=== PATIENT | male | born 1950 | race Caucasian/White ===

== ENCOUNTER → 2017-08-20 | Outpatient (REF) | payer MEDICARE | LOC: M SFHCPLAZ 13:49 | PROVIDERS: ATTEND Physician Assistant | DX: E78.5 Hyperlipidemia, unspecified (principal); Z12.5 Encounter for screening for malignant neoplasm of prostate; R42 Dizziness and giddiness; Z53.8 Procedure and treatment not carried out for other reasons ==

== ENCOUNTER → 2017-08-30 | Outpatient (REF) | payer MEDICARE ==
[2017-08-30 14:50] LABS: ALBUMIN 3.7 GM/DL (3.2-5.2); ALBUMIN/GLOBULIN RATIO 1.19 (1.00-1.93); ALKALINE PHOSPHATASE 72 U/L (45-117); ALT/SGPT 20 U/L (12-78); ANION GAP 8 MEQ/L (8-16); AST/SGOT 17 U/L (15-37); BILIRUBIN,TOTAL 0.4 MG/DL (0.2-1.0); BLOOD UREA NITROGEN 15 MG/DL (7-18); CALCIUM LEVEL 8.8 MG/DL (8.8-10.2); CARBON DIOXIDE LEVEL 30 MEQ/L (21-32); CHLORIDE LEVEL 106 MEQ/L (98-107); CHOLESTEROL LEVEL 168 MG/DL (<200); CREATININE FOR GFR 0.66 MG/DL (0.70-1.30); GLOMERULAR FILTRATION RATE > 60.0 (>49); GLUCOSE, FASTING 75 MG/DL (80-110); SODIUM LEVEL 144 MEQ/L (136-145); TOTAL PROTEIN 6.8 GM/DL (6.4-8.2); TRIGLYCERIDES LEVEL 82 MG/DL (<150)
== END ==
LOC: M SFHCPLAZ 09:18
PROVIDERS: ATTEND Physician Assistant
DX: E78.5 Hyperlipidemia, unspecified (principal); Z12.5 Encounter for screening for malignant neoplasm of prostate; R42 Dizziness and giddiness
CPT/HCPCS: 36415; 80053; 80061; 84443; G0103

== ENCOUNTER → 2019-04-29 | Outpatient (REF) | payer MEDICARE ==
[2019-04-29 12:08] LABS: HEMOGLOBIN 11.3 g/dl (13.5-17.5); MEAN CORPUSCULAR HEMOGLOBIN 24.7 pg (27.0-33.0); MEAN CORPUSCULAR VOLUME 85.3 fl (80.0-96.0); PLATELET COUNT, AUTOMATED 362 10^3/uL (150-450); RED BLOOD COUNT 4.57 10^6/uL (4.30-6.10); WHITE BLOOD COUNT 9.4 10^3/uL (4.0-10.0)
[2019-04-29 13:52] LABS: ALBUMIN 3.7 GM/DL (3.2-5.2); ALT/SGPT 22 U/L (12-78); BILIRUBIN,TOTAL 0.2 MG/DL (0.2-1.0); BLOOD UREA NITROGEN 15 MG/DL (7-18); CALCIUM LEVEL 8.6 MG/DL (8.8-10.2); CARBON DIOXIDE LEVEL 25 MEQ/L (21-32); CHLORIDE LEVEL 107 MEQ/L (98-107); CHOLESTEROL LEVEL 184 MG/DL (<200); CHOLESTEROL RISK RATIO 3.345 (<5); CREATININE FOR GFR 0.67 MG/DL (0.70-1.30); FERRITIN 9 NG/ML (26-388); GLOMERULAR FILTRATION RATE > 60.0 (>42); GLUCOSE, FASTING 77 MG/DL (70-100); HDL CHOLESTEROL 55 MG/DL (>40); IRON (FE) 41 UG/DL (65-175); LDL CHOLESTEROL 110 MG/DL (<100); NON-HDL-C 129 MG/DL; PERCENT SATURATION 9.7 % (19.7-50.0); POTASSIUM SERUM 4.2 MEQ/L (3.5-5.1); SODIUM LEVEL 142 MEQ/L (136-145); TOTAL IRON BINDING CAPACITY 422 UG/DL (250-450); TOTAL PROTEIN 7.1 GM/DL (6.4-8.2); TRIGLYCERIDES LEVEL 95 MG/DL (<150)
== END ==
LOC: M SFHCPLAZ 08:45
PROVIDERS: ATTEND Nurse Practitioner Family
DX: E78.5 Hyperlipidemia, unspecified (principal); R06.09 Other forms of dyspnea; Z12.5 Encounter for screening for malignant neoplasm of prostate; Z23 Encounter for immunization
CPT/HCPCS: 36415; 80053; 80061; 82728; 83550; 84443; 85027; 90732; G0009; G0103; G0463

== ENCOUNTER → 2019-05-07 | Outpatient (CLI) | payer MEDICARE ==
[~2019-05-07] MED LIST: ISOVUE-370 76% 100ML VIAL (Q9967) As Ordered ONE
--- NOTE | 2019-05-07 16:29 | REP ---
CT of the chest for evaluation of lung nodules identified on PA and lateral plain film studies dated 04/29/2019. The study is performed with IV contrast. On the comparison plain film study there is a nodule inferiorly in the right lung. On the CT today this nodule is in the anterior segment right lower lobe on image 68. By CT is a calcified granuloma and measures five millimeters in diameter. On the comparison study there is a nodule inferiorly in the left lung. This nodule is identified in the posterior segment of the left lower lobe on image 82 and measures 3 mm in diameter by CT. It is too small for accurate Hounsfield density measurement. On the comparison plain film study there is another nodule inferiorly in the left lung. On the CT today the nodule is in the lateral segment of the left lower lobe on image 83 that is a calcified granuloma. This nodule measures 4 mm in diameter by CT. No other lung nodules are identified by CT. There are no infiltrates. There are no pleural effusions. There is no mediastinal or hilar lymph node enlargement. There are no mediastinal or hilar calcified granulomas. There is no axillary lymph node enlargement or calcified granuloma. The thoracic aorta is unremarkable. Cardiac size is normal. There is no pericardial effusion. Upper abdomen: The visualized hepatic parenchyma is unremarkable except for a small hepatic cyst anteriorly in the left lobe. The gallbladder, pancreas and spleen are unremarkable. There is no adrenal mass. The visualized renal upper poles are unremarkable except for a small simple cyst in the left renal upper pole. Impression: The three nodules identified on the plain film study are again identified by CT. Two of the three nodules are calcified granulomas. One of the two nodules in the left lung cannot be accurately assessed by CT density measurements because of its small size. This nodule measures 3 mm in diameter and is a category II lesion with the probability of malignancy less than 1%. There are no other lung nodules. There are no infiltrates, effusions or adenopathy. There is a a small cyst anteriorly in the left lobe of the liver. There is a small renal cortical simple cyst in the upper pole of the left kidney. Electronically Signed by Woo Hanson MD 05/07/2019 04:21 P
== END ==
LOC: M RAD 15:05
PROVIDERS: ATTEND Nurse Practitioner Family
DX: R91.8 Other nonspecific abnormal finding of lung field (principal); N28.1 Cyst of kidney, acquired; K76.89 Other specified diseases of liver
CPT/HCPCS: 71260; Q9967

== ENCOUNTER 2019-06-05 10:20 | Day surgery (SDC) | payer MEDICARE ==
[~2019-06-05] VITALS: Ht 162.6 cm; Wt 5.4 kg
[~2019-06-05 10:20] MED LIST changes: +ATOR1TAB21 PO; +FERR325T3 PO; -ISOVUE-370 76% 100ML VIAL (Q9967) As Ordered ONE; +LIDOCAINE 2% INJ 100 MG/5 ML SDV (FOR ANES.) As Ordered ONE; +PROPOFOL 200 MG/20 ML VIAL As Ordered ONE
[2019-06-05] MEDS: NS 1,000 ML IV ONE (10:20)
[2019-06-05] MEDS ORDERED: fentaNYL 100 MCG/2 ML INJECTION (J3010) As Ordered ONE (11:17)
[2019-06-05] MEDS ORDERED: PHENYLephrine HCL 500 MCG/5 ML (100MCG/ML) SYRINGE (J2370) As Ordered ONE (11:36)
--- NOTE | 2019-06-05 11:38 | ROOR ---
Patient Name: Jose Alfredo Hurley Procedure Date: 06/05/2019 11:23 AM Date of : 1950 Age: 69 Room: [facility] Gender: Male Note Status: Finalized Procedure: Upper GI endoscopy Indications: Iron deficiency anemia Providers: Qasim Manzano Jr, MD Referring MD: Paulina Elkins NP Requesting Provider: Medicines: Propofol per Anesthesia Complications: No immediate complications. Procedure: Pre-Anesthesia Assessment: - Prior to the procedure, a History and Physical was performed, and patient medications and allergies were reviewed. The patient is competent. The risks and benefits of the procedure and the sedation options and risks were discussed with the patient. All questions were answered and informed consent was obtained. Patient identification and proposed procedure were verified by the physician and the nurse in the pre-procedure area and in the procedure room. Mental Status Examination: alert and oriented. Airway Examination: normal oropharyngeal airway and neck mobility. Respiratory Examination: clear to auscultation. CV Examination: normal. ASA Grade Assessment: II - A patient with mild systemic disease. After reviewing the risks and benefits, the patient was deemed in satisfactory condition to undergo the procedure. The anesthesia plan was to use moderate sedation / analgesia (conscious sedation). Immediately prior to administration of medications, the patient was re-assessed for adequacy to receive sedatives. The heart rate, respiratory rate, oxygen saturations, blood pressure, adequacy of pulmonary ventilation, and response to care were monitored throughout the procedure. The physical status of the patient was re-assessed after the procedure. The Endoscope was introduced through the mouth, and advanced to the second part of duodenum. The upper GI endoscopy was accomplished without difficulty. The patient tolerated the procedure well. Findings: The upper third of the esophagus, middle third of the esophagus and lower third of the esophagus were normal. Non-severe esophagitis was found at the gastroesophageal junction. Biopsies were taken with a cold forceps for histology. The cardia, gastric fundus, gastric body, gastric antrum, prepyloric region of the stomach and pylorus were normal. The duodenal bulb, first portion of the duodenum and second portion of the duodenum were normal. Impression: - Normal upper third of esophagus, middle third of esophagus and lower third of esophagus. - Non-severe reflux esophagitis. Biopsied. - Normal cardia, gastric fundus, gastric body, antrum, prepyloric region of the stomach and pylorus. - Normal duodenal bulb, first portion of the duodenum and second portion of the duodenum. Recommendation: - Discharge patient to home (ambulatory). - Return to my office as previously scheduled. Qasim Manzano MD Qasim Manzano Jr, MD 06/05/2019 11:38:08 AM Electronically signed by Qasim Manzano Jr, MD Number of Addenda: 0 Note Initiated On: 06/05/2019 11:23 AM Estimated Blood Loss: Estimated blood loss: none.
--- NOTE | 2019-06-05 11:52 | ROOR ---
Patient Name: Jose Alfredo Hurley Procedure Date: 06/05/2019 11:24 AM Date of : 1950 Age: 69 Room: [facility] Gender: Male Note Status: Finalized Procedure: Colonoscopy Indications: Iron deficiency anemia Providers: Qasim Manzano Jr, MD Referring MD: Paulina Elkins NP Requesting Provider: Medicines: Propofol per Anesthesia Complications: No immediate complications. Procedure: Pre-Anesthesia Assessment: - Prior to the procedure, a History and Physical was performed, and patient medications and allergies were reviewed. The patient is competent. The risks and benefits of the procedure and the sedation options and risks were discussed with the patient. All questions were answered and informed consent was obtained. Patient identification and proposed procedure were verified by the physician and the nurse in the pre-procedure area and in the procedure room. Mental Status Examination: alert and oriented. Airway Examination: normal oropharyngeal airway and neck mobility. Respiratory Examination: clear to auscultation. CV Examination: normal. ASA Grade Assessment: II - A patient with mild systemic disease. After reviewing the risks and benefits, the patient was deemed in satisfactory condition to undergo the procedure. The anesthesia plan was to use moderate sedation / analgesia (conscious sedation). Immediately prior to administration of medications, the patient was re-assessed for adequacy to receive sedatives. The heart rate, respiratory rate, oxygen saturations, blood pressure, adequacy of pulmonary ventilation, and response to care were monitored throughout the procedure. The physical status of the patient was re-assessed after the procedure. The Colonoscope was introduced through the anus and advanced to the cecum, identified by appendiceal orifice and ileocecal valve. The colonoscopy was performed without difficulty. The patient tolerated the procedure well. The quality of the bowel preparation was adequate. Findings: The rectum, recto-sigmoid colon, sigmoid colon, descending colon, transverse colon, cecum and ileocecal valve appeared normal. A fungating, infiltrative and submucosal non-obstructing medium-sized mass was found in the ascending colon. The mass was non-circumferential. Oozing was present. Biopsies were taken with a cold forceps for histology. Area was tattooed with an injection of 1 mL of Spot (carbon black). Impression: - The rectum, recto-sigmoid colon, sigmoid colon, descending colon, transverse colon, cecum and ileocecal valve are normal. - Likely malignant tumor in the ascending colon. Biopsied. Tattooed. Recommendation: - Discharge patient to home (ambulatory). - Return to my office in 1 week. Qasim Manzano MD Qasim Manzano Jr, MD 06/05/2019 11:52:05 AM Electronically signed by Qasim Manzano Jr, MD Number of Addenda: 0 Note Initiated On: 06/05/2019 11:24 AM Estimated Blood Loss: Estimated blood loss: none.
[2019-06-05 12:30] VITALS: BP 117/83
[2019-06-05] MEDS ORDERED: LIDOCAINE 1% MDV 20ML VIAL As Ordered ONE (13:10)
[2019-06-05] MEDS ORDERED: EPINEPHrine 1MG/ML INJ 30ML MD-VIAL As Ordered ONE (13:11)
== END 2019-06-05 12:44 | disposition home or self-care (01) ==
LOC: M OPP 10:20
PROVIDERS: ATTEND Surgery
DX: D50.9 Iron deficiency anemia, unspecified (principal); D49.0 Neoplasm of unspecified behavior of digestive system; K21.0 Gastro-esophageal reflux disease with esophagitis; Z79.899 Other long term (current) drug therapy; Z87.891 Personal history of nicotine dependence
CPT/HCPCS: 43239; 45380; 45381; 88305; J2370; J3010

== ENCOUNTER 2019-06-24 08:46 | Inpatient (IN) | payer MEDICARE ==
--- NOTE | 2019-06-23 17:30 | HPE ---
DATE OF ADMISSION: 06/24/2019 CHIEF COMPLAINT: Colon cancer (ascending colon). BRIEF HISTORY OF PRESENT ILLNESS: The patient is a 69-year-old male who was referred to the surgical office for workup of anemia and specifically an iron deficiency anemia. Upon proceeding with a colonoscopy, a fungating infiltrative nonobstructing lesion was found in the ascending colon. This was mildly friable and is most likely the etiology for his anemia. The biopsy results were performed and indeed revealed a moderately-differentiated adenocarcinoma. The patient presents for further treatment of this. PAST MEDICAL HISTORY: Significant for a history of bilateral inguinal hernia repair, history of colonoscopy, esophagogastroduodenoscopy (EGD), history of hyperlipidemia. MEDICATIONS: Include atorvastatin and iron. PHYSICAL EXAMINATION: Reveals a 69-year-old male who looks stated age. HEENT is unremarkable. Neck supple without adenopathy. Lungs are clear to auscultation without crackles, wheezes or rhonchi. Heart is regular without murmur. Abdomen is soft, nondistended, nontender. No guarding. No rebound. No peritoneal signs are appreciated. No hepatosplenomegaly is appreciated. IMPRESSION AND PLAN: The patient has evidence of a right-sided colon cancer and the plan is for a laparoscopic right colectomy. The risks as well as the benefits have been discussed with the patient at length, those including but not limited to infection, bleeding, damage to surrounding structures including bowel, bladder, nerve vessels, kidney, ureter, duodenum, liver, and possible anastomotic complications, infections, leaks, etcetera. The patient understands that there is a chance that he may need an open operative intervention instead of laparoscopic but overall plan as of this time is to proceed with a laparoscopic right colectomy. The patient understands that he will receive a mechanical as well as antibiotic bowel preparation perioperatively and will be hospitalized after operative intervention.
[2019-06-24] VITALS (8 sets, daily range): BP systolic 110–130; BP diastolic 60–83
[~2019-06-24] VITALS: Ht 162.6 cm; Wt 58.7 kg
[~2019-06-24 08:46] MED LIST changes: +ERTAPENEM SODIUM 1 GM in NS MINI-BAG PLUS 50 ML IV ONE; +KETOROLAC 60 MG/2 ML VIAL (J1885) As Ordered ONE; +LIDOCAINE 1% MDV 20ML VIAL SQ PRN; -LIDOCAINE 2% INJ 100 MG/5 ML SDV (FOR ANES.) As Ordered ONE; +LR 1,000 ML IV ONE; -PROPOFOL 200 MG/20 ML VIAL As Ordered ONE
[2019-06-24] MEDS: ATORVASTATIN 20 MG TAB PO SCH (09:00)
[2019-06-24] MEDS ORDERED: LIDOCAINE 2% INJ 100 MG/5 ML SDV (FOR ANES.) As Ordered ONE (10:03)
[2019-06-24] MEDS ORDERED: propofoL 200 MG/20 ML VIAL As Ordered ONE (10:03)
[2019-06-24] MEDS ORDERED: dexameTHASONE 4 MG/ML 1ML VIAL (J1100) As Ordered ONE ×2 (10:03→10:04)
[2019-06-24] MEDS ORDERED: ROCURONIUM BROMIDE 50 MG/5 ML VIAL As Ordered ONE ×2 (10:03→13:21)
[2019-06-24] MEDS ORDERED: ONDANSETRON 4MG/2ML VIAL (J2405) As Ordered ONE (10:04)
[2019-06-24] MEDS ORDERED: MIDAZOLAM INJ 2 MG/2 ML VIAL (J2250) As Ordered ONE (10:08)
[2019-06-24] MEDS ORDERED: fentaNYL 100 MCG/2 ML INJECTION (J3010) As Ordered ONE ×2 (10:09→14:32)
[2019-06-24] MEDS ORDERED: SUCCINYLCHOLINE 100 MG/5 ML SYRINGE (J0330) As Ordered ONE (10:30)
[2019-06-24] MEDS ORDERED: BUPIVACAINE/EPIN 0.25% 30 ML VIAL As Ordered ONE (11:54)
[2019-06-24] MEDS ORDERED: PHENYLephrine HCL 500 MCG/5 ML (100MCG/ML) SYRINGE (J2370) As Ordered ONE (12:43)
[2019-06-24] MEDS ORDERED: BUPIVACAINE LIPOSOME/PF 1.3% 20ML VIAL (13.3MG/ML)(EXPAREL)(C9290 PER1MG) As Ordered ONE (13:49)
[2019-06-24] MEDS ORDERED: BUPIVACAINE HCL 0.25% 10 ML VIAL As Ordered ONE (13:49)
[2019-06-24] MEDS ORDERED: ACETAMINOPHEN 1000MG 100ML IV BTL (OFIRMEV) (J0131 PER 10MG) As Ordered ONE (13:58)
[2019-06-24] MEDS ORDERED: SUGAMMADEX SODIUM 500 MG/5 ML VIAL (BRIDION) As Ordered ONE (14:00)
[2019-06-24] MEDS ORDERED: ONDANSETRON 4MG/2ML VIAL (J2405) IV PRN ×2 (14:15→14:45)
[2019-06-24] MEDS ORDERED: IPRATROPIUM 0.5MG/ALBUTEROL 2.5MG INH SOL UD 3ML (DUONEB)(J7620) NEB PRN (14:15)
[2019-06-24] MEDS ORDERED: NORCO, ANEXSIA 5/325MG TABLET (HYDROcodone/ACETAMINOPHEN) PO PRN (14:15)
[2019-06-24] MEDS ORDERED: MORPHINE 4 MG/ML 1ML VIAL/SYRINGE (J2270) IV PRN ×2 (14:15)
[2019-06-24] MEDS: fentaNYL 100 MCG/2 ML INJECTION (J3010) IV PRN ×3 (14:34→14:55)
[2019-06-24] MEDS ORDERED: MEPERIDINE INJ 25 MG/ML VIAL (J2175) IV PRN (14:45)
[2019-06-24] MEDS ORDERED: oxyCODONE 5MG TAB PO PRN (14:45)
[2019-06-24] MEDS ORDERED: LR 1,000 ML IV SCH (14:45)
[2019-06-24] MEDS ORDERED: METOCLOPRAMIDE INJ 10MG/2ML VIAL (J2765) IV PRN (14:45)
[2019-06-24] MEDS: LR 1,000 ML IV SCH ×2 (18:01→23:53)
[2019-06-24] MEDS: IPRATROPIUM 0.5MG/ALBUTEROL 2.5MG INH SOL UD 3ML (DUONEB)(J7620) NEB SCH (20:00)
[2019-06-24] MEDS: KETOROLAC 30 MG/ML VIAL (J1885) IV SCH (21:01)
[2019-06-24] MEDS: ALVIMOPAN 12 MG CAPSULE (ENTEREG) PO SCH (21:01)
[2019-06-25 02:00] VITALS: BP 125/72
[2019-06-25] MEDS: IPRATROPIUM 0.5MG/ALBUTEROL 2.5MG INH SOL UD 3ML (DUONEB)(J7620) NEB SCH ×5 (02:00→23:52)
[2019-06-25] MEDS: KETOROLAC 30 MG/ML VIAL (J1885) IV SCH ×4 (03:41→21:17)
[2019-06-25 06:00] VITALS: BP 126/72
[2019-06-25 06:18] LABS: HEMATOCRIT 36.1 % (42.0-52.0); HEMOGLOBIN 11.4 g/dl (13.5-17.5); MEAN CORPUSCULAR HEMOGLOBIN 28.5 pg (27.0-33.0); MEAN CORPUSCULAR HGB CONC 31.6 g/dl (32.0-36.5); MEAN CORPUSCULAR VOLUME 90.3 fl (80.0-96.0); PLATELET COUNT, AUTOMATED 291 10^3/uL (150-450); WHITE BLOOD COUNT 15.4 10^3/uL (4.0-10.0)
[2019-06-25 06:37] LABS: BLOOD UREA NITROGEN 15 MG/DL (7-18); CALCIUM LEVEL 8.2 MG/DL (8.8-10.2); CARBON DIOXIDE LEVEL 27 MEQ/L (21-32); CHLORIDE LEVEL 106 MEQ/L (98-107); CREATININE FOR GFR 0.76 MG/DL (0.70-1.30); GLOMERULAR FILTRATION RATE > 60.0 (>42); GLUCOSE, FASTING 104 MG/DL (70-100); POTASSIUM SERUM 4.1 MEQ/L (3.5-5.1); SODIUM LEVEL 139 MEQ/L (136-145)
[2019-06-25] MEDS: LR 1,000 ML IV SCH ×2 (08:05→17:38)
[2019-06-25] MEDS: ALVIMOPAN 12 MG CAPSULE (ENTEREG) PO SCH (08:42)
[2019-06-25] MEDS: ATORVASTATIN 20 MG TAB PO SCH (08:42)
[2019-06-25 10:00] VITALS: BP 132/68
[2019-06-25] MEDS ORDERED: cefTRIAXone SOD 1 GM in D5W MINI-BAG PLUS 50 ML IV ONE (12:00)
[2019-06-25 14:00] VITALS: BP 121/65
[2019-06-25 18:00] VITALS: BP 119/64
[2019-06-25 22:00] VITALS: BP 115/64
[2019-06-26 02:00] VITALS: BP 111/68
[2019-06-26] MEDS: KETOROLAC 30 MG/ML VIAL (J1885) IV SCH ×4 (02:43→23:51)
[2019-06-26 06:00] VITALS: BP 109/68
[2019-06-26 06:22] LABS: HEMATOCRIT 32.2 % (42.0-52.0); HEMOGLOBIN 9.9 g/dl (13.5-17.5); MEAN CORPUSCULAR HEMOGLOBIN 28.2 pg (27.0-33.0); MEAN CORPUSCULAR HGB CONC 30.7 g/dl (32.0-36.5); MEAN CORPUSCULAR VOLUME 91.7 fl (80.0-96.0); PLATELET COUNT, AUTOMATED 248 10^3/uL (150-450); RED BLOOD COUNT 3.51 10^6/uL (4.30-6.10); WHITE BLOOD COUNT 13.2 10^3/uL (4.0-10.0)
[2019-06-26 06:45] LABS: BLOOD UREA NITROGEN 12 MG/DL (7-18); CALCIUM LEVEL 8.1 MG/DL (8.8-10.2); CARBON DIOXIDE LEVEL 30 MEQ/L (21-32); CHLORIDE LEVEL 110 MEQ/L (98-107); CREATININE FOR GFR 0.64 MG/DL (0.70-1.30); GLOMERULAR FILTRATION RATE > 60.0 (>42); GLUCOSE, FASTING 73 MG/DL (70-100); POTASSIUM SERUM 3.9 MEQ/L (3.5-5.1); SODIUM LEVEL 143 MEQ/L (136-145)
[2019-06-26] MEDS: IPRATROPIUM 0.5MG/ALBUTEROL 2.5MG INH SOL UD 3ML (DUONEB)(J7620) NEB SCH ×3 (07:14→20:00)
--- NOTE | 2019-06-26 07:48 | IPN ---
DATE: 06/25/2019 The patient is here for status post laparoscopic right colectomy. He is doing quite well. He has had no nausea and no vomiting. No GI complaints. He had some minimal discomfort in the incision itself, but otherwise seems to be making some good progress. Otherwise, at this point, ins and outs show good urine output. He has been afebrile. His white count is elevated this morning in the perioperative time period, but otherwise labs are not concerning on today's exam. His lungs are clear anteriorly. Heart is regular. Abdomen soft, nondistended, nontender. Dressings are clean and dry. He has a little bit of an ecchymosis around his periumbilical/large incision site. IMPRESSION AND PLAN: The patient is status post laparoscopic right colectomy (postoperative 1 day) and seems to be making some good progress. Will start him on some clear liquids this morning. If he does well, will discontinue (DC) his [place] later on today and progress his diet as tolerated. Once we progress his diet, will Hep-Lock his IV and change him over to by mouth pain medications as well.
[2019-06-26] MEDS: ATORVASTATIN 20 MG TAB PO SCH (09:06)
[2019-06-26 10:00] VITALS: BP 118/67
[2019-06-26 14:00] VITALS: BP 120/67
[2019-06-26 18:00] VITALS: BP 116/67
--- NOTE | 2019-06-26 21:36 | IPN ---
DATE: 06/26/2019 The patient has been afebrile, has been doing well. Unfortunately had a little bit of diarrhea yesterday. This morning seems to be a little bit less diarrheal bowel movements but otherwise still is having some loose stools. Not complaining of any significant abdominal pain, mild cramping that he is having. He is not having any fevers or chills and overall was started on a regular diet today. On his physical exam, lungs are clear. Heart: Regular. Abdomen: Soft, nontender, nondistended. Incisions are clean, dry, healing without any erythema, drainage or discharge. IMPRESSION AND PLAN: The patient seems to be making some good progress. At this time we will have him continue on his regular diet. We will see if he starts to firm up his stools over the next 24 hours and once this occurs then we will be able to discharge him to home. Otherwise we will see how he does over the next 24 hours, but otherwise seems to be making some good progress.
[2019-06-26 22:00] VITALS: BP_SYST 119; BP_DIAS 67; BP_DIAS 68
[2019-06-26] MEDS: LACTOBACILLUS ACIDOPHILUS CAP (BACID) PO SCH (23:51)
[2019-06-27 02:00] VITALS: BP 117/69
[2019-06-27] MEDS: IPRATROPIUM 0.5MG/ALBUTEROL 2.5MG INH SOL UD 3ML (DUONEB)(J7620) NEB SCH ×3 (02:00→13:12)
[2019-06-27] MEDS: KETOROLAC 30 MG/ML VIAL (J1885) IV SCH ×3 (04:23→13:40)
[2019-06-27 06:00] VITALS: BP 114/72
[2019-06-27 06:22] LABS: HEMATOCRIT 28.7 % (42.0-52.0); HEMOGLOBIN 8.9 g/dl (13.5-17.5); MEAN CORPUSCULAR HEMOGLOBIN 27.7 pg (27.0-33.0); MEAN CORPUSCULAR VOLUME 89.4 fl (80.0-96.0); PLATELET COUNT, AUTOMATED 245 10^3/uL (150-450); RED BLOOD COUNT 3.21 10^6/uL (4.30-6.10); WHITE BLOOD COUNT 12.1 10^3/uL (4.0-10.0)
[2019-06-27 06:49] LABS: BLOOD UREA NITROGEN 16 MG/DL (7-18); CALCIUM LEVEL 8.1 MG/DL (8.8-10.2); CARBON DIOXIDE LEVEL 29 MEQ/L (21-32); CHLORIDE LEVEL 111 MEQ/L (98-107); CREATININE FOR GFR 0.56 MG/DL (0.70-1.30); GLOMERULAR FILTRATION RATE > 60.0 (>42); GLUCOSE, FASTING 74 MG/DL (70-100); POTASSIUM SERUM 3.8 MEQ/L (3.5-5.1); SODIUM LEVEL 144 MEQ/L (136-145)
[2019-06-27] MEDS: ATORVASTATIN 20 MG TAB PO SCH (09:57)
[2019-06-27] MEDS: LACTOBACILLUS ACIDOPHILUS CAP (BACID) PO SCH ×2 (09:57→12:30)
[2019-06-27 10:00] VITALS: BP_SYST 0; BP_SYST 142; BP_DIAS 0; BP_DIAS 79
[2019-06-27 14:00] VITALS: BP 142/78
[2019-06-27] MEDS ORDERED: HYDR-4571 PO (15:59)
[2019-06-27] MEDS ORDERED: RISATAB3 PO (15:59)
--- NOTE | 2019-07-22 10:47 | DSES ---
DATE OF ADMISSION: 06/24/2019 DATE OF DISCHARGE: 06/27/2019 PRINCIPAL DIAGNOSIS: Right colon cancer. ASSOCIATED DIAGNSOSES: 1. History of anemia. 2. History of bilateral inguinal hernia repair. 3. History of hyperlipidemia. BRIEF HISTORY OF PRESENT ILLNESS: The patient is a 69-year-old male who was referred to the office for a workup with anemia, and once proceeding with an upper lower endoscopy a right-sided fungating infiltrating nonobstructing lesion was found in the ascending colon. This was tattooed and then he was brought to the operating room for operative intervention/right colectomy on 06/24/2019. HOSPITAL COURSE PROGRESS: The patient was admitted with the above diagnosis, went to the operating room where he underwent a right colectomy. He seem to make some good progress over the first 24 hours and then was started on a clear liquid diet, advanced to a regular diet and was discharged home on the third day tolerating a regular diet with instructions to followup in my office for staple removal and to followup for discussion of pathology, which revealed a T2 lesion with all negative lymph nodes.
--- NOTE | 2019-07-22 10:47 | RO ---
DATE OF PROCEDURE: 06/24/2019 PREOPERATIVE DIAGNOSIS: Right colon cancer. POSTOPERATIVE DIAGNOSIS: Right colon cancer. PROCEDURE PERFORMED: Laparoscopic right colectomy. SURGEON: Dr. Qasim Manzano. CLINICAL COORDINATOR: Dr. Woo Willson (provided assistance with retraction, exposure and assistance with the anastomosis and abdominal wall closure). ANESTHESIA: General endotracheal anesthesia. ESTIMATED BLOOD LOSS: Minimal. FLUIDS: Crystalloid. DESCRIPTION OF PROCEDURE: The patient was brought to the operating room and was given general anesthesia. After adequate anesthesia and preoperative antibiotics were given, the patient was prepped and draped in sterile fashion. Next a supraumbilical incision was made with skin knife. Blunt dissection was carried down to fascia and Veress needle was placed into the abdominal cavity insufflated to 15 mm of pressure and a dilating 10 mm trocar was placed at this time under direct visualization. A suprapubic and left lower quadrant 5 mm trocars were placed as well as a left upper quadrant 5 mm trocar was placed. The patient was placed in Trendelenburg, left side down position and the terminal ileum, which was attached to the right pelvic sidewall was taken down with harmonic scalpel as well as the attachments of the cecum to the right side of the abdominal wall and eventually this was mobilized quite nicely all the way up to along the white line of Toldt and all the way up to the hepatic flexure and then across hepatic flexure, across the duodenal sweep and up to the mid transverse colon. The omentum was taken off the mid transverse colon in this area and worked backwards towards the duodenal sweep. In any case this was mobilized the mesentery off Gerota's fascia off the duodenal sweep medially back to almost where the vessels were for the kidney on the side. Same was true on the terminal ileum/appendix area. This was mobilized quite nicely and then what was noticed was that the tumor, itself was really at the level of the ascending colon closer to the hepatic flexure. This colon then was mobilized after the mesentery of the terminal ileum was transected using the harmonic scalpel all the way down to the ileocolic which was then mobilized even a little bit more to get this taken out through the defect. The 12 trocar was replaced at the umbilicus and a NICCI stapler placed on the vessels in this area. Next, once the colon had been adequately mobilized, a grasper was placed on the cecum brought up to the incision and then the midline incision was opened further to allow a [id number] anastomosis of the small bowel to the transverse colon. Once this was performed this was returned to the abdominal cavity after the mesentery was taken with a NICCI vascular load and the bowel had been taken with green loads. The [id number] anastomosis went without difficulty and the enterotomy was closed with a NICCI 75 blue load as well. Midline was closed with #1-0 Vicryl in a running manner. Maria A were used to approximate the skin. Dry sterile dressing was applied. The patient was awakened, extubated, brought to the recovery room awake, alert, hemodynamically stable. Sponge and needle counts correct times two.
== END 2019-06-27 16:48 | disposition home or self-care (01) | DRG 331 ==
LOC: M OR 08:46 → M MSPAV 15:45
PROVIDERS: ADMIT Surgery; ATTEND Surgery
PROC: 0DBK4ZZ Excision of Ascending Colon, Percutaneous Endoscopic Approach (ICD-10-PCS; principal; 2019-06-24 10:45)
DX: C18.2 Malignant neoplasm of ascending colon (principal); E78.2 Mixed hyperlipidemia; D50.9 Iron deficiency anemia, unspecified

== ENCOUNTER → 2019-07-16 | Outpatient (REF) | payer MEDICARE ==
[~2019-07-16] MED LIST changes: -ERTAPENEM SODIUM 1 GM in NS MINI-BAG PLUS 50 ML IV ONE; +HYDR-4571 PO; -KETOROLAC 60 MG/2 ML VIAL (J1885) As Ordered ONE; -LIDOCAINE 1% MDV 20ML VIAL SQ PRN; -LR 1,000 ML IV ONE; +RISATAB3 PO
[2019-07-16 17:17] LABS: HEMATOCRIT 36.3 % (42.0-52.0); MEAN CORPUSCULAR HEMOGLOBIN 28.9 pg (27.0-33.0); MEAN CORPUSCULAR HGB CONC 30.3 g/dl (32.0-36.5); MEAN CORPUSCULAR VOLUME 95.3 fl (80.0-96.0); PLATELET COUNT, AUTOMATED 402 10^3/uL (150-450); RED BLOOD COUNT 3.81 10^6/uL (4.30-6.10); WHITE BLOOD COUNT 7.7 10^3/uL (4.0-10.0)
== END ==
LOC: M SFHCPLAZ 14:37
PROVIDERS: ATTEND Nurse Practitioner Family
DX: D50.9 Iron deficiency anemia, unspecified (principal)
CPT/HCPCS: 36415; 85027; G0463

== ENCOUNTER → 2020-06-08 | Outpatient (REF) | payer MEDICARE ==
[2020-06-08 13:30] LABS: ALBUMIN 3.7 GM/DL (3.2-5.2); ALT/SGPT 46 U/L (12-78); BILIRUBIN,TOTAL 0.4 MG/DL (0.2-1.0); BLOOD UREA NITROGEN 16 MG/DL (7-18); CARBON DIOXIDE LEVEL 32 MEQ/L (21-32); CHLORIDE LEVEL 104 MEQ/L (98-107); CHOLESTEROL LEVEL 141 MG/DL (<200); CHOLESTEROL RISK RATIO 2.877 (<5); CREATININE FOR GFR 0.88 MG/DL (0.70-1.30); GLOMERULAR FILTRATION RATE > 60.0 (>42); GLUCOSE, FASTING 96 MG/DL (70-100); HDL CHOLESTEROL 49 MG/DL (>40); LDL CHOLESTEROL 76 MG/DL (<100); NON-HDL-C 92 MG/DL; POTASSIUM SERUM 4.3 MEQ/L (3.5-5.1); SODIUM LEVEL 141 MEQ/L (136-145); TOTAL PROTEIN 7.1 GM/DL (6.4-8.2); TRIGLYCERIDES LEVEL 79 MG/DL (<150)
== END ==
LOC: M PLALAB 09:49
PROVIDERS: ATTEND Nurse Practitioner Family
DX: E78.2 Mixed hyperlipidemia (principal)

== ENCOUNTER → 2020-07-14 | Outpatient (CLI) | payer MEDICAID, MEDICARE ==
--- NOTE | 2020-07-21 18:34 | REP ---
CHEST CT WITHOUT CONTRAST: LOW-DOSE SCREENING EXAM HISTORY: Former smoker. COMPARISON: CT chest study 05/07/2019. FINDINGS: There has been no change in the appearance of any of the three granulomatous nodules in the lower lobes previously identified in the interval since the 05/07/2019 study. No new pulmonary nodule is appreciated. Vascular calcifications noted. IMPRESSION: Stable lung-RADS Category 2 findings. Repeat screening exam indicated in one year. MTDD
== END ==
LOC: M RAD 10:44
PROVIDERS: ATTEND Nurse Practitioner Family
DX: Z12.2 Encounter for screening for malignant neoplasm of respiratory organs (principal); Z87.891 Personal history of nicotine dependence; J84.10 Pulmonary fibrosis, unspecified

== ENCOUNTER → 2020-08-17 | Outpatient (CLI) | payer MEDICARE ==
[2020-08-17 17:13] LABS: BASO # 0.1 10^3/uL (0.0-0.2); BASO % 0.8 % (0.0-1.0); EOS # 0.5 10^3/uL (0.0-0.5); EOS % 4.7 % (0.0-3.0); HEMATOCRIT 46.5 % (42.0-52.0); HEMOGLOBIN 14.6 g/dl (13.5-17.5); LYMPH # 2.7 10^3/uL (1.5-5.0); LYMPH % 26.5 % (24.0-44.0); MEAN CORPUSCULAR HEMOGLOBIN 30.7 pg (27.0-33.0); MEAN CORPUSCULAR HGB CONC 31.4 g/dl (32.0-36.5); MEAN CORPUSCULAR VOLUME 97.9 fl (80.0-96.0); MONO # 1.8 10^3/uL (0.0-0.8); MONO % 17.2 % (0.0-5.0); NEUTROPHILS # 5.1 10^3/uL (1.5-8.5); NEUTROPHILS % 49.7 % (36.0-66.0); PLATELET COUNT, AUTOMATED 296 10^3/uL (150-450); RED BLOOD COUNT 4.75 10^6/uL (4.30-6.10); WHITE BLOOD COUNT 10.2 10^3/uL (4.0-10.0)
[2020-08-17 17:33] LABS: INR 0.97
[2020-08-17 17:34] LABS: PARTIAL THROMBOPLASTIN TIME 30.9 SECONDS (24.2-38.5)
[2020-08-17 19:13] LABS: ALBUMIN 3.6 GM/DL (3.2-5.2); ALT/SGPT 45 U/L (12-78); BILIRUBIN,TOTAL 0.3 MG/DL (0.2-1.0); BLOOD UREA NITROGEN 18 MG/DL (7-18); CALCIUM LEVEL 8.9 MG/DL (8.8-10.2); CARBON DIOXIDE LEVEL 31 MEQ/L (21-32); CHLORIDE LEVEL 105 MEQ/L (98-107); CREATININE FOR GFR 0.82 MG/DL (0.70-1.30); GLOMERULAR FILTRATION RATE > 60.0 (>42); GLUCOSE, FASTING 82 MG/DL (70-100); POTASSIUM SERUM 4.6 MEQ/L (3.5-5.1); SODIUM LEVEL 139 MEQ/L (136-145); TOTAL PROTEIN 7.1 GM/DL (6.4-8.2)
[2020-08-18 13:38] LABS: VITAMIN B12 LEVEL 575 PG/ML (247-911)
== END ==
LOC: M PLALAB 15:20
PROVIDERS: ATTEND Family Medicine
DX: E78.2 Mixed hyperlipidemia (principal)
CPT/HCPCS: 36415; 80053; 82607; 85025; 85610; 85730; 93005; G0463

== ENCOUNTER → 2020-08-25 | Outpatient (REF) | payer MEDICARE | LOC: M PLALAB 10:18 | PROVIDERS: ATTEND Nurse Practitioner Family | DX: Z12.5 Encounter for screening for malignant neoplasm of prostate (principal) | CPT/HCPCS: 36415; G0103 ==

== ENCOUNTER → 2020-09-25 | Outpatient (CLI) | payer MEDICARE, MEDICAID | LOC: M LABSMTC 09:52 | PROVIDERS: ATTEND Anesthesiology | DX: Z01.812 Encounter for preprocedural laboratory examination (principal); Z20.828 Contact with and (suspected) exposure to other viral communicable diseases | CPT/HCPCS: C9803; U0003 ==

== ENCOUNTER 2020-09-30 10:34 | Day surgery (SDC) | payer MEDICARE ==
[~2020-09-30] VITALS: Ht 162.6 cm; Wt 65.8 kg
[~2020-09-30 10:34] MED LIST changes: +NS 1,000 ML IV ONE
[2020-09-30] MEDS ORDERED: LIDOCAINE 2% 100MG/5ML SDV (FOR ANES.) As Ordered ONE (10:54)
[2020-09-30] MEDS ORDERED: propofoL 200 MG/20 ML VIAL As Ordered ONE (10:54)
--- NOTE | 2020-09-30 12:31 | ROOR ---
Patient Name: Jose Alfredo Hurley Procedure Date: 09/30/2020 12:17 PM Date of : 1950 Age: 70 Room: [facility] Gender: Male Note Status: Finalized Procedure: Colonoscopy Indications: High risk colon cancer surveillance: Personal history of colon cancer Providers: Qasim Manzano Jr, MD Referring MD: Connie Johnson NP Requesting Provider: Medicines: Propofol per Anesthesia Complications: No immediate complications. Procedure: Pre-Anesthesia Assessment: - Prior to the procedure, a History and Physical was performed, and patient medications and allergies were reviewed. The patient is competent. The risks and benefits of the procedure and the sedation options and risks were discussed with the patient. All questions were answered and informed consent was obtained. Patient identification and proposed procedure were verified by the physician and the nurse in the pre-procedure area and in the procedure room. Mental Status Examination: alert and oriented. Airway Examination: normal oropharyngeal airway and neck mobility. Respiratory Examination: clear to auscultation. CV Examination: normal. ASA Grade Assessment: II - A patient with mild systemic disease. After reviewing the risks and benefits, the patient was deemed in satisfactory condition to undergo the procedure. The anesthesia plan was to use moderate sedation / analgesia (conscious sedation). Immediately prior to administration of medications, the patient was re-assessed for adequacy to receive sedatives. The heart rate, respiratory rate, oxygen saturations, blood pressure, adequacy of pulmonary ventilation, and response to care were monitored throughout the procedure. The physical status of the patient was re-assessed after the procedure. The Colonoscope was introduced through the anus and advanced to the cecum, identified by appendiceal orifice and ileocecal valve. The colonoscopy was performed without difficulty. The patient tolerated the procedure well. The quality of the bowel preparation was adequate. Findings: The rectum, recto-sigmoid colon, sigmoid colon, descending colon, transverse colon and anastomosis appeared normal. Impression: - The rectum, recto-sigmoid colon, sigmoid colon, descending colon, transverse colon and colonic anastomosis are normal. - No specimens collected. Recommendation: - Discharge patient to home (ambulatory). - Repeat colonoscopy in 3 years for screening purposes. Qasim Manzano MD Qasim Manzano Jr, MD 09/30/2020 12:31:13 PM Electronically signed by Qasim Manzano Jr, MD Number of Addenda: 0 Note Initiated On: 09/30/2020 12:17 PM Estimated Blood Loss: Estimated blood loss: none.
[2020-09-30 12:55] VITALS: BP 166/89
== END 2020-09-30 13:09 | disposition home or self-care (01) ==
LOC: M OPP 10:34
PROVIDERS: ATTEND Surgery
DX: Z85.038 Personal history of other malignant neoplasm of large intestine (principal); Z08 Encounter for follow-up examination after completed treatment for malignant neoplasm; K21.9 Gastro-esophageal reflux disease without esophagitis; Z79.899 Other long term (current) drug therapy; Z87.891 Personal history of nicotine dependence

== ENCOUNTER 2020-11-15 11:09 | Emergency (ER) | payer MEDICARE ==
[~2020-11-15] VITALS: Ht 162.6 cm; Wt 66.5 kg
[~2020-11-15 11:09] MED LIST changes: -NS 1,000 ML IV ONE
[2020-11-15] MEDS ORDERED: BOOSTRIX/ADACEL VACCINE (DIPHTH/PERTUSS/ACELL/TETANUS) 0.5ML SYR IM ONE (12:00)
[2020-11-15] MEDS ORDERED: LIDOCAINE 1% MDV 20ML VIAL SC ONE (12:00)
[2020-11-15 13:25] VITALS: BP 175/85
== END 2020-11-15 13:29 | disposition home or self-care (01) ==
LOC: M ED 11:09
DX: S51.811A Laceration without foreign body of right forearm, initial encounter (principal); W10.8XXA Fall (on) (from) other stairs and steps, initial encounter; Y92.018 Other place in single-family (private) house as the place of occurrence of the external cause; C81.90 Hodgkin lymphoma, unspecified, unspecified site; Z79.899 Other long term (current) drug therapy; Z87.891 Personal history of nicotine dependence

== ENCOUNTER → 2021-05-16 | Outpatient (CLI) | payer MEDICARE ==
[2021-05-16 11:18] LABS: ALBUMIN 3.7 GM/DL (3.2-5.2); ALT/SGPT 60 U/L (12-78); BILIRUBIN,TOTAL 0.4 MG/DL (0.2-1.0); BLOOD UREA NITROGEN 16 MG/DL (7-18); CALCIUM LEVEL 9.1 MG/DL (8.8-10.2); CARBON DIOXIDE LEVEL 33 MEQ/L (21-32); CHLORIDE LEVEL 105 MEQ/L (98-107); CHOLESTEROL LEVEL 176 MG/DL (<200); CHOLESTEROL RISK RATIO 3.744 (<5); GLOMERULAR FILTRATION RATE > 60.0 (>42); GLUCOSE, FASTING 92 MG/DL (70-100); HDL CHOLESTEROL 47 MG/DL (>40); LDL CHOLESTEROL 110 MG/DL (<100); NON-HDL-C 129 MG/DL; POTASSIUM SERUM 4.9 MEQ/L (3.5-5.1); SODIUM LEVEL 138 MEQ/L (136-145); TOTAL PROTEIN 7.3 GM/DL (6.4-8.2); TRIGLYCERIDES LEVEL 97 MG/DL (<150)
== END ==
LOC: M PLALAB 08:47
PROVIDERS: ATTEND Nurse Practitioner Family
DX: E78.2 Mixed hyperlipidemia (principal)

== ENCOUNTER → 2021-07-04 | Outpatient (CLI) | payer MEDICARE ==
[~2021-07-04] MED LIST changes: +GASTROGRAFIN SOLUTION 30ML (Q9963) As Ordered ONE; +ISOVUE-370 76% 100ML VIAL As Ordered ONE
--- NOTE | 2021-07-04 16:12 | REP ---
INDICATION: F/U LUNG NODULE, COLON CA. COMPARISON: Comparison chest CT studies are dated July 14, 2020 and May 07, 2019.. TECHNIQUE: 100 mL of intravenous Isovue 370 is administered and helical scanning is acquired. 3 mm axial images are re-formatted. Coronal and sagittal MPR images are generated. FINDINGS: Preliminary digital big data software engineer radiograph shows no acute disease. There is no evidence of pleural or pericardial effusion. No new hilar or mediastinal adenopathy is observed. There is a sub cm infrahilar lymph node on the right which is unchanged from the May 07, 2019 prior study. There is a calcified granuloma in the right lower lobe of the lung on today's study page 61 of 109 in series 204 of today's exam. There is a calcified granuloma in the left lower lobe visible on page 78 and a stable 3 mm nodule is seen in the left lower lobe on page 76. These findings are all unchanged from the May 07, 2019 prior study. No new pulmonary nodule is seen. No infiltrate or mass lesion is observed. No endobronchial abnormality is seen. No pleural or pericardial effusion is seen. There is no evidence of aortic aneurysm or dissection. No filling defect is seen within the pulmonary arterial tree. There is diffuse fatty infiltration of the liver. IMPRESSION: Stable pulmonary nodular densities as above. No active cardiopulmonary disease. <Electronically signed by Tuan Armenta > 07/04/21 [id number]
--- NOTE | 2021-07-04 16:29 | REP ---
INDICATION: F/U LUNG NODULE, COLON CA. COMPARISON: Comparison is made with chest CT images from May 07, 2019.. TECHNIQUE: Helical scanning is acquired and 3 mm axial images re-formatted. Coronal and sagittal MPR images are generated. The CT contrast enhancement dose is 100 mL of intravenous Isovue 370. Dual phase post-contrast imaging is acquired. Oral contrast was also administered. FINDINGS: The preliminary digital molding machine operator helper radiograph is unremarkable. A levoconvex lumbar curvature is noted. On axial CT images there is mild to moderate diffuse fatty infiltration of the liver again noted. There is no focal liver mass lesion. The gallbladder is unremarkable. The liver is not enlarged. The spleen is normal in size homogeneous in texture. Normal adrenal glands are observed bilaterally. No abnormality is noted in the pancreas. There is a simple cyst in the upper pole of the left kidney which measures 1.6 cm in greatest diameter. No renal mass lesion is observed. There is no evidence of retroperitoneal or upper abdominal lymphadenopathy. No mesenteric adenopathy is appreciated. No pelvic mass or adenopathy is seen. There are dystrophic calcifications in the mildly enlarged prostate. Urinary bladder is unremarkable. Oral contrast is seen labeling the small and large bowel. No mass or obstructive lesion is seen. No abdominal wall defect is observed. Bone window settings show no bony destructive lesion. IMPRESSION: No evidence of mass or adenopathy. Fatty infiltration of the liver. Small left renal cyst. <Electronically signed by Tuan Armenta > 07/04/21 [id number]
== END ==
LOC: M RAD 13:28
PROVIDERS: ATTEND Internal Medicine Hematology & Oncology
DX: R91.1 Solitary pulmonary nodule (principal); C18.9 Malignant neoplasm of colon, unspecified; K76.0 Fatty (change of) liver, not elsewhere classified; N20.0 Calculus of kidney
CPT/HCPCS: 71260; 74177; Q9963; Q9967

== ENCOUNTER → 2021-08-19 | Outpatient (CLI) | payer MEDICARE ==
[~2021-08-19] MED LIST changes: -GASTROGRAFIN SOLUTION 30ML (Q9963) As Ordered ONE; -ISOVUE-370 76% 100ML VIAL As Ordered ONE; +PEPC40TA12 PO
[2021-08-19 13:56] LABS: HEMATOCRIT 44.8 % (42.0-52.0); HEMOGLOBIN 14.3 g/dl (13.5-17.5); MEAN CORPUSCULAR HEMOGLOBIN 30.7 pg (27.0-33.0); MEAN CORPUSCULAR HGB CONC 31.9 g/dl (32.0-36.5); MEAN CORPUSCULAR VOLUME 96.1 fl (80.0-96.0); PLATELET COUNT, AUTOMATED 288 10^3/uL (150-450); RED BLOOD COUNT 4.66 10^6/uL (4.30-6.10); WHITE BLOOD COUNT 9.3 10^3/uL (4.0-10.0)
[2021-08-19 14:30] LABS: BLOOD UREA NITROGEN 16 MG/DL (7-18); CALCIUM LEVEL 9.3 MG/DL (8.8-10.2); CARBON DIOXIDE LEVEL 30 MEQ/L (21-32); CHLORIDE LEVEL 107 MEQ/L (98-107); CREATININE FOR GFR 0.81 MG/DL (0.70-1.30); GLOMERULAR FILTRATION RATE > 60.0 (>42); GLUCOSE, FASTING 118 MG/DL (70-100); SODIUM LEVEL 143 MEQ/L (136-145)
[2021-08-19 14:31] LABS: ALBUMIN 3.6 GM/DL (3.2-5.2); ALT/SGPT 56 U/L (12-78); BILIRUBIN,TOTAL 0.3 MG/DL (0.2-1.0); FERRITIN 24 NG/ML (26-388); TOTAL PROTEIN 7.1 GM/DL (6.4-8.2)
== END ==
LOC: M PLALAB 11:03
PROVIDERS: ATTEND Nurse Practitioner Family
DX: E78.2 Mixed hyperlipidemia (principal); D50.9 Iron deficiency anemia, unspecified; Z12.5 Encounter for screening for malignant neoplasm of prostate
CPT/HCPCS: 36415; 80053; 82728; 85027; G0103

== ENCOUNTER → 2022-10-24 | Outpatient (CLI) | payer MEDICARE ==
[2022-10-24 15:27] LABS: BASO # 0.1 10^3/uL (0.0-0.2); BASO % 0.9 % (0.0-1.0); EOS # 0.1 10^3/uL (0.0-0.5); EOS % 0.8 % (0.0-3.0); HEMATOCRIT 46.6 % (42.0-52.0); LYMPH # 1.8 10^3/uL (1.5-5.0); LYMPH % 15.1 % (24.0-44.0); MEAN CORPUSCULAR HEMOGLOBIN 30.7 pg (27.0-33.0); MEAN CORPUSCULAR HGB CONC 32.2 g/dl (32.0-36.5); MEAN CORPUSCULAR VOLUME 95.5 fl (80.0-96.0); MONO # 1.4 10^3/uL (0.0-0.8); MONO % 11.6 % (2.0-8.0); NEUTROPHILS # 8.2 10^3/uL (1.5-8.5); NEUTROPHILS % 70.5 % (36.0-66.0); PLATELET COUNT, AUTOMATED 375 10^3/uL (150-450); RED BLOOD COUNT 4.88 10^6/uL (4.30-6.10); WHITE BLOOD COUNT 11.6 10^3/uL (4.0-10.0)
[2022-10-24 15:39] LABS: TOTAL IRON BINDING CAPACITY 315 UG/DL (250-425)
[2022-10-24 15:40] LABS: ALBUMIN 3.6 G/DL (3.2-5.2); ALKALINE PHOSPHATASE 94 U/L (46-116); ALT/SGPT 39 U/L (7.0-40); AST/SGOT 26 U/L (<34); BILIRUBIN,TOTAL 0.4 MG/DL (0.3-1.2); BLOOD UREA NITROGEN 15 MG/DL (9-23); CALCIUM LEVEL 9.6 MG/DL (8.3-10.6); CARBON DIOXIDE LEVEL 29 MMOL/L (20-31); CHLORIDE LEVEL 102 MMOL/L (98-107); CHOLESTEROL LEVEL 123 MG/DL (<200); CHOLESTEROL RISK RATIO 2.78 (<5); CREATININE FOR GFR 0.71 MG/DL (0.70-1.30); GLOMERULAR FILTRATION RATE > 60.0 (>42); GLUCOSE, FASTING 134 MG/DL (74-106); HDL CHOLESTEROL 44.1 MG/DL (>40); IRON (FE) 71 UG/DL (65-175); LDL CHOLESTEROL 60.1 MG/DL (<100); NON-HDL-C 79 MG/DL; PERCENT SATURATION 22.5 % (19.7-50.0); POTASSIUM SERUM 4.3 MMOL/L (3.5-5.1); SODIUM LEVEL 140 MMOL/L (136-145); TRIGLYCERIDES LEVEL 94 MG/DL (<150)
== END ==
LOC: M PLALAB 12:20
PROVIDERS: ATTEND Physician Assistant
DX: D50.9 Iron deficiency anemia, unspecified (principal); E78.5 Hyperlipidemia, unspecified

== ENCOUNTER 2022-11-28 10:38 | Inpatient (IN) | payer MEDICARE ==
[~2022-11-28] VITALS: Ht 162.6 cm; Wt 65.0 kg
[2022-11-28] MEDS: ENOXAPARIN 40MG/0.4ML SYRINGE (J1650 PER 10MG) SC SCH (09:00)
[2022-11-28] MEDS ORDERED: ALBU8.5H INH (11:01)
[2022-11-28] MEDS ORDERED: BUDE10.7 INH (11:01)
[2022-11-28 11:54] LABS: HEMATOCRIT 42.5 % (42.0-52.0); MEAN CORPUSCULAR HEMOGLOBIN 31.6 pg (27.0-33.0); MEAN CORPUSCULAR HGB CONC 32.9 g/dl (32.0-36.5); MEAN CORPUSCULAR VOLUME 95.9 fl (80.0-96.0); PLATELET COUNT, AUTOMATED 471 10^3/uL (150-450); RED BLOOD COUNT 4.43 10^6/uL (4.30-6.10); WHITE BLOOD COUNT 25.7 10^3/uL (4.0-10.0)
[2022-11-28 11:55] LABS: VENOUS BASE EXCESS 2.5 (-2.0-2.0); VENOUS HCO3 28.7 MEQ/L (23.0-27.0); VENOUS O2 SATURATION 77.2 % (60.0-80.0); VENOUS PARTIAL PRESSURE CO2 49.9 mmHg (38.0-50.0); VENOUS PARTIAL PRESSURE O2 43.9 mmHg (30.0-50.0); VENOUS PH 7.377 UNITS (7.330-7.430); VENOUS STANDARD HCO3 26.1 MEQ/L; VENOUS TOTAL CO2 30.2 MEQ/L (24.0-28.0)
[2022-11-28 12:04] LABS: INR 1.02; PROTHROMBIN TIME 13.6 SECONDS (12.5-14.5)
[2022-11-28] MEDS: COMBIVENT RESPIMAT 100-20MCG INHALER 4GM INH SCH ×3 (12:06→12:54)
[2022-11-28 12:25] LABS: CK-MB VALUE MASS 3.4 NG/ML (<3.6)
[2022-11-28 12:26] LABS: CPK CREATINE PHOSPHOKINASE 119 U/L (46-171); MB/CK RELATIVE INDEX 2.85 (< OR =4)
[2022-11-28 12:27] LABS: ALBUMIN 2.6 G/DL (3.2-5.2); ALKALINE PHOSPHATASE 129 U/L (46-116); ALT/SGPT 62 U/L (7.0-40); AST/SGOT 63 U/L (<34); BILIRUBIN,DIRECT 0.3 MG/DL (<0.4); BILIRUBIN,TOTAL 0.6 MG/DL (0.3-1.2); BLOOD UREA NITROGEN 16 MG/DL (9-23); CALCIUM LEVEL 9.2 MG/DL (8.3-10.6); CARBON DIOXIDE LEVEL 30 MMOL/L (20-31); CHLORIDE LEVEL 96 MMOL/L (98-107); CREATININE FOR GFR 0.71 MG/DL (0.70-1.30); GLOMERULAR FILTRATION RATE > 60.0 (>42); GLUCOSE, FASTING 100 MG/DL (74-106); POTASSIUM SERUM 4.3 MMOL/L (3.5-5.1); SODIUM LEVEL 134 MMOL/L (136-145); TOTAL PROTEIN 6.8 G/DL (5.7-8.2)
[2022-11-28 12:29] LABS: THYROID STIMULATING HORMONE 0.404 uIU/ML (0.55-4.78); THYROXINE (T4) 10.6 UG/DL (4.5-10.9)
[2022-11-28 12:36] LABS: ATYPICAL LYMPH 1 % (0-5); EOSINOPHILS 1 % (0-3); LYMPHOCYTES 8 % (16-44); MONOCYTES 8 % (0-5); NEUTROPHILS 78 % (28-66)
[2022-11-28 12:37] LABS: PLATELET ESTIMATE INCREASED (NORMAL); POLYCHROMASIA 1+
[2022-11-28] MEDS ORDERED: cefTRIAXone SOD 2 GM in D5W MINI-BAG PLUS 50 ML IV ONE (13:00)
[2022-11-28] MEDS ORDERED: HOME MED LIST COMPLETE! XX SCH (14:35)
[2022-11-28] MEDS: TIOTROPIUM INHALER/CAPSULE (SPIRIVA) INH SCH (15:08)
[2022-11-28 15:14] VITALS: O2SAT 94
[2022-11-28] MEDS: ALBUTEROL 90 MCG/ACT 8GM HFA INHALER INH SCH ×3 (15:14→23:40)
[2022-11-28 15:56] LABS: INR 1.07; PROTHROMBIN TIME 14.1 SECONDS (12.5-14.5)
[2022-11-28 15:57] LABS: PARTIAL THROMBOPLASTIN TIME 33.5 SECONDS (24.8-34.2)
[2022-11-28 16:00] LABS: D-DIMER QUANT 1343.96 ng/ml (<500)
[2022-11-28 16:04] LABS: FERRITIN 367.3 NG/ML (10.5-307.3)
[2022-11-28] MEDS ORDERED: REMDESIVIR 200 MG in NS 250 ML IV ONE (17:00)
[2022-11-28] MEDS ORDERED: SODIUM CHLORIDE 0.9% INJ 10 ML SYR IV ONE (18:00)
[2022-11-28 18:06] LABS: C REACTIVE PROTEIN QUANTITATIV 33.7 MG/DL (<1.0)
[2022-11-28] MEDS: SYMBICORT 160/4.5MCG INHALER 6GM INH SCH (20:00)
[2022-11-29] MEDS: ALBUTEROL 90 MCG/ACT 8GM HFA INHALER INH SCH ×6 (03:48→23:13)
[2022-11-29 05:12] LABS: HEMATOCRIT 37.1 % (42.0-52.0); HEMOGLOBIN 12.4 g/dl (13.5-17.5); MEAN CORPUSCULAR HEMOGLOBIN 32.5 pg (27.0-33.0); MEAN CORPUSCULAR HGB CONC 33.4 g/dl (32.0-36.5); MEAN CORPUSCULAR VOLUME 97.1 fl (80.0-96.0); PLATELET COUNT, AUTOMATED 439 10^3/uL (150-450); RED BLOOD COUNT 3.82 10^6/uL (4.30-6.10); WHITE BLOOD COUNT 21.8 10^3/uL (4.0-10.0)
[2022-11-29 05:38] LABS: MAGNESIUM LEVEL 2.3 MG/DL (1.8-2.4)
[2022-11-29 05:39] LABS: BILIRUBIN,DIRECT 0.1 MG/DL (<0.4)
[2022-11-29 05:40] LABS: ALBUMIN 2.2 G/DL (3.2-5.2); ALKALINE PHOSPHATASE 108 U/L (46-116); ALT/SGPT 63 U/L (7.0-40); AST/SGOT 67 U/L (<34); BILIRUBIN,TOTAL 0.3 MG/DL (0.3-1.2); BLOOD UREA NITROGEN 19 MG/DL (9-23); CALCIUM LEVEL 8.7 MG/DL (8.3-10.6); CARBON DIOXIDE LEVEL 32 MMOL/L (20-31); CHLORIDE LEVEL 101 MMOL/L (98-107); CREATININE FOR GFR 0.62 MG/DL (0.70-1.30); GLOMERULAR FILTRATION RATE > 60.0 (>42); GLUCOSE, FASTING 135 MG/DL (74-106); POTASSIUM SERUM 3.9 MMOL/L (3.5-5.1); SODIUM LEVEL 141 MMOL/L (136-145)
[2022-11-29 05:55] LABS: LYMPHOCYTES 2 % (16-44); MONOCYTES 5 % (0-5); MYELOCYTES 4 % (0-0); PROMYELOCYTES 3 % (0-0)
[2022-11-29 05:56] LABS: PLATELET ESTIMATE NORMAL (NORMAL)
[2022-11-29 05:59] LABS: NEUTROPHILS 73 % (28-66)
[2022-11-29] MEDS: SYMBICORT 160/4.5MCG INHALER 6GM INH SCH ×3 (07:52→19:50)
[2022-11-29] MEDS: TIOTROPIUM INHALER/CAPSULE (SPIRIVA) INH SCH (07:53)
[2022-11-29] MEDS: ENOXAPARIN 40MG/0.4ML SYRINGE (J1650 PER 10MG) SC SCH (09:18)
[2022-11-29] MEDS: cefTRIAXone SOD 2 GM in D5W MINI-BAG PLUS 50 ML IV SCH (13:16)
[2022-11-29 15:00] VITALS: BP 112/54
[2022-11-29 15:48] VITALS: O2SAT 90
[2022-11-29] MEDS: REMDESIVIR 100 MG in NS 250 ML IV SCH (17:47)
[2022-11-29] MEDS: SODIUM CHLORIDE 0.9% INJ 10 ML SYR IV SCH (17:48)
[2022-11-29 22:00] VITALS: BP 105/58
[2022-11-30] MEDS: ALBUTEROL 90 MCG/ACT 8GM HFA INHALER INH SCH ×7 (03:58→23:09)
[2022-11-30] MEDS ORDERED: MAALOX 30 ML SUSP *UDC PO PRN (04:55)
[2022-11-30] MEDS: FAMOTIDINE 20 MG TAB PO SCH ×2 (05:02→21:04)
[2022-11-30 06:00] VITALS: BP 118/56
[2022-11-30 07:17] LABS: BASO % 0.1 % (0.0-1.0); HEMATOCRIT 39.2 % (42.0-52.0); HEMOGLOBIN 12.6 g/dl (13.5-17.5); LYMPH # 1.9 10^3/uL (1.5-5.0); LYMPH % 5.9 % (24.0-44.0); MEAN CORPUSCULAR HEMOGLOBIN 31.3 pg (27.0-33.0); MEAN CORPUSCULAR HGB CONC 32.1 g/dl (32.0-36.5); MEAN CORPUSCULAR VOLUME 97.3 fl (80.0-96.0); MONO # 1.5 10^3/uL (0.0-0.8); MONO % 4.6 % (2.0-8.0); NEUTROPHILS # 27.8 10^3/uL (1.5-8.5); NEUTROPHILS % 85.4 % (36.0-66.0); PLATELET COUNT, AUTOMATED 541 10^3/uL (150-450); RED BLOOD COUNT 4.03 10^6/uL (4.30-6.10)
[2022-11-30 07:39] LABS: WHITE BLOOD COUNT 32.5 10^3/uL (4.0-10.0)
[2022-11-30 07:41] LABS: INR 1.11; LDH LACTATE DEHYDROGENASE 368 U/L (120-246); MAGNESIUM LEVEL 2.5 MG/DL (1.8-2.4); PROTHROMBIN TIME 14.5 SECONDS (12.5-14.5)
[2022-11-30 07:42] LABS: ALBUMIN 2.3 G/DL (3.2-5.2); ALKALINE PHOSPHATASE 107 U/L (46-116); ALT/SGPT 99 U/L (7.0-40); AST/SGOT 90 U/L (<34); BILIRUBIN,DIRECT 0.1 MG/DL (<0.4); BILIRUBIN,TOTAL 0.3 MG/DL (0.3-1.2); BLOOD UREA NITROGEN 26 MG/DL (9-23); CALCIUM LEVEL 8.8 MG/DL (8.3-10.6); CARBON DIOXIDE LEVEL 31 MMOL/L (20-31); CHLORIDE LEVEL 103 MMOL/L (98-107); CPK CREATINE PHOSPHOKINASE 64 U/L (46-171); CREATININE FOR GFR 0.63 MG/DL (0.70-1.30); GLOMERULAR FILTRATION RATE > 60.0 (>42); GLUCOSE, FASTING 107 MG/DL (74-106); PARTIAL THROMBOPLASTIN TIME 29.4 SECONDS (24.8-34.2); SODIUM LEVEL 144 MMOL/L (136-145); TOTAL PROTEIN 6.2 G/DL (5.7-8.2)
[2022-11-30] MEDS: TIOTROPIUM INHALER/CAPSULE (SPIRIVA) INH SCH (07:42)
[2022-11-30] MEDS: SYMBICORT 160/4.5MCG INHALER 6GM INH SCH ×2 (07:42→20:28)
[2022-11-30] MEDS: ENOXAPARIN 40MG/0.4ML SYRINGE (J1650 PER 10MG) SC SCH (08:59)
[2022-11-30 09:00] VITALS: O2SAT 90
[2022-11-30 14:00] VITALS: BP 142/56
[2022-11-30] MEDS: cefTRIAXone SOD 2 GM in D5W MINI-BAG PLUS 50 ML IV SCH (14:01)
[2022-11-30] MEDS: REMDESIVIR 100 MG in NS 250 ML IV SCH (17:27)
[2022-11-30] MEDS: SODIUM CHLORIDE 0.9% INJ 10 ML SYR IV SCH (17:29)
[2022-11-30 22:00] VITALS: BP 139/61
[2022-12-01 01:54] VITALS: O2SAT 93
[2022-12-01] MEDS: ALBUTEROL 90 MCG/ACT 8GM HFA INHALER INH SCH ×5 (04:11→20:00)
[2022-12-01 05:58] VITALS: BP 128/60
[2022-12-01 07:10] LABS: BASO # 0.1 10^3/uL (0.0-0.2); BASO % 0.6 % (0.0-1.0); HEMATOCRIT 36.2 % (42.0-52.0); HEMOGLOBIN 11.4 g/dl (13.5-17.5); LYMPH # 1.2 10^3/uL (1.5-5.0); LYMPH % 5.3 % (24.0-44.0); MEAN CORPUSCULAR HEMOGLOBIN 30.7 pg (27.0-33.0); MEAN CORPUSCULAR HGB CONC 31.5 g/dl (32.0-36.5); MEAN CORPUSCULAR VOLUME 97.6 fl (80.0-96.0); MONO % 6.8 % (2.0-8.0); NEUTROPHILS % 82.7 % (36.0-66.0); PLATELET COUNT, AUTOMATED 498 10^3/uL (150-450); RED BLOOD COUNT 3.71 10^6/uL (4.30-6.10)
[2022-12-01 07:40] LABS: MAGNESIUM LEVEL 2.4 MG/DL (1.8-2.4)
[2022-12-01 07:41] LABS: BLOOD UREA NITROGEN 27 MG/DL (9-23); CALCIUM LEVEL 8.5 MG/DL (8.3-10.6); CARBON DIOXIDE LEVEL 29 MMOL/L (20-31); CHLORIDE LEVEL 106 MMOL/L (98-107); CREATININE FOR GFR 0.61 MG/DL (0.70-1.30); GLOMERULAR FILTRATION RATE > 60.0 (>42); GLUCOSE, FASTING 112 MG/DL (74-106); POTASSIUM SERUM 4.3 MMOL/L (3.5-5.1); SODIUM LEVEL 143 MMOL/L (136-145)
[2022-12-01 07:43] LABS: MONO # 1.6 10^3/uL (0.0-0.8)
[2022-12-01] MEDS: SYMBICORT 160/4.5MCG INHALER 6GM INH SCH ×2 (07:45→20:01)
[2022-12-01] MEDS: TIOTROPIUM INHALER/CAPSULE (SPIRIVA) INH SCH (07:45)
[2022-12-01 09:00] VITALS: O2SAT 90
[2022-12-01] MEDS: ENOXAPARIN 40MG/0.4ML SYRINGE (J1650 PER 10MG) SC SCH (09:38)
[2022-12-01] MEDS: cefTRIAXone SOD 2 GM in D5W MINI-BAG PLUS 50 ML IV SCH (13:39)
[2022-12-01 14:00] VITALS: BP 141/76
[2022-12-01] MEDS: REMDESIVIR 100 MG in NS 250 ML IV SCH (17:27)
[2022-12-01] MEDS: SODIUM CHLORIDE 0.9% INJ 10 ML SYR IV SCH (17:31)
[2022-12-01 20:11] VITALS: BP 142/65
[2022-12-01] MEDS: FAMOTIDINE 20 MG TAB PO SCH (23:50)
[2022-12-02] MEDS: ALBUTEROL 90 MCG/ACT 8GM HFA INHALER INH SCH ×5 (00:50→15:38)
[2022-12-02 06:00] VITALS: BP 135/65
[2022-12-02 06:14] LABS: HEMATOCRIT 37.7 % (42.0-52.0); HEMOGLOBIN 11.9 g/dl (13.5-17.5); MEAN CORPUSCULAR HEMOGLOBIN 30.7 pg (27.0-33.0); MEAN CORPUSCULAR HGB CONC 31.6 g/dl (32.0-36.5); MEAN CORPUSCULAR VOLUME 97.2 fl (80.0-96.0); PLATELET COUNT, AUTOMATED 510 10^3/uL (150-450); RED BLOOD COUNT 3.88 10^6/uL (4.30-6.10); WHITE BLOOD COUNT 20.2 10^3/uL (4.0-10.0)
[2022-12-02 06:26] LABS: INR 1.15; PROTHROMBIN TIME 14.9 SECONDS (12.5-14.5)
[2022-12-02 06:27] LABS: PARTIAL THROMBOPLASTIN TIME 28.1 SECONDS (24.8-34.2)
[2022-12-02 06:42] LABS: ATYPICAL LYMPH 1 % (0-5); LYMPHOCYTES 9 % (16-44); METAMYELOCYTES 2 % (0-0); MONOCYTES 6 % (0-5); MYELOCYTES 1 % (0-0); NEUTROPHILS 80 % (28-66)
[2022-12-02 06:44] LABS: PLATELET ESTIMATE INCREASED (NORMAL); POLYCHROMASIA 1+
[2022-12-02 06:45] LABS: BILIRUBIN,DIRECT 0.1 MG/DL (<0.4); LDH LACTATE DEHYDROGENASE 291 U/L (120-246)
[2022-12-02 06:48] LABS: FERRITIN 208.9 NG/ML (10.5-307.3)
[2022-12-02 06:55] LABS: ALBUMIN 2.1 G/DL (3.2-5.2); ALKALINE PHOSPHATASE 75 U/L (46-116); ALT/SGPT 79 U/L (7.0-40); AST/SGOT 39 U/L (<34); BILIRUBIN,TOTAL 0.3 MG/DL (0.3-1.2); BLOOD UREA NITROGEN 23 MG/DL (9-23); CALCIUM LEVEL 8.3 MG/DL (8.3-10.6); CARBON DIOXIDE LEVEL 27 MMOL/L (20-31); CHLORIDE LEVEL 107 MMOL/L (98-107); CPK CREATINE PHOSPHOKINASE 56 U/L (46-171); CREATININE FOR GFR 0.55 MG/DL (0.70-1.30); GLOMERULAR FILTRATION RATE > 60.0 (>42); GLUCOSE, FASTING 79 MG/DL (74-106); POTASSIUM SERUM 4.4 MMOL/L (3.5-5.1); SODIUM LEVEL 141 MMOL/L (136-145); TOTAL PROTEIN 5.3 G/DL (5.7-8.2)
[2022-12-02] MEDS: TIOTROPIUM INHALER/CAPSULE (SPIRIVA) INH SCH (08:38)
[2022-12-02 08:39] VITALS: O2SAT 93
[2022-12-02] MEDS: SYMBICORT 160/4.5MCG INHALER 6GM INH SCH (08:39)
[2022-12-02] MEDS: ENOXAPARIN 40MG/0.4ML SYRINGE (J1650 PER 10MG) SC SCH (08:52)
[2022-12-02] MEDS: REMDESIVIR 100 MG in NS 250 ML IV SCH (11:22)
[2022-12-02] MEDS: SODIUM CHLORIDE 0.9% INJ 10 ML SYR IV SCH (11:23)
[2022-12-02 12:01] VITALS: O2SAT 94
[2022-12-02] MEDS: cefTRIAXone SOD 2 GM in D5W MINI-BAG PLUS 50 ML IV SCH (12:43)
[2022-12-02 14:00] VITALS: BP 151/78
[2022-12-02] MEDS ORDERED: PRED10TA2 PO (15:25)
[2022-12-02] MEDS ORDERED: CEFD300CAP PO (15:25)
[2022-12-02 15:38] VITALS: O2SAT 95
== END 2022-12-02 16:59 | disposition home or self-care (01) | DRG 177 ==
LOC: M ED 10:38 → M ED INP 14:24 → ENRESERV 16:15 → CANRESERV 11-29 12:22 → ENRESERV 11-29 12:22 → M MSPAV 11-29 15:00
PROVIDERS: ADMIT Internal Medicine Nephrology; ATTEND Internal Medicine Nephrology
PROC: XW033E5 Introduction of Remdesivir Anti-infective into Peripheral Vein, Percutaneous Approach, New Technology Group 5 (ICD-10-PCS; principal; 2022-11-28)
PROC: 3E0333Z Introduction of Anti-inflammatory into Peripheral Vein, Percutaneous Approach (ICD-10-PCS; 2022-11-28)
DX: U07.1 COVID-19 (principal); J13 Pneumonia due to Streptococcus pneumoniae; J96.21 Acute and chronic respiratory failure with hypoxia; J44.1 Chronic obstructive pulmonary disease with (acute) exacerbation; J44.0 Chronic obstructive pulmonary disease with (acute) lower respiratory infection; Z99.81 Dependence on supplemental oxygen; E78.5 Hyperlipidemia, unspecified; D50.9 Iron deficiency anemia, unspecified; Z79.899 Other long term (current) drug therapy; Z85.038 Personal history of other malignant neoplasm of large intestine; Z90.49 Acquired absence of other specified parts of digestive tract; R91.1 Solitary pulmonary nodule; Z87.891 Personal history of nicotine dependence; R74.01 Elevation of levels of liver transaminase levels

== ENCOUNTER → 2022-12-13 | Outpatient (CLI) | payer MEDICARE ==
[~2022-12-13] MED LIST changes: +ALBU8.5H INH; +BUDE10.7 INH; +CEFD300CAP PO; +PRED10TA2 PO
== END ==
LOC: M RAD 12:28
PROVIDERS: ATTEND Internal Medicine Critical Care Medicine
DX: Z12.2 Encounter for screening for malignant neoplasm of respiratory organs (principal); F17.218 Nicotine dependence, cigarettes, with other nicotine-induced disorders

== ENCOUNTER → 2023-05-17 | Outpatient (CLI) | payer MEDICARE | LOC: M RAD 15:02 | PROVIDERS: ATTEND Internal Medicine Critical Care Medicine | DX: R91.8 Other nonspecific abnormal finding of lung field (principal) ==

== ENCOUNTER → 2023-10-01 | Outpatient (CLI) | payer MEDICARE ==
[2023-10-01 13:51] LABS: BASO # 0.1 10^3/uL (0.0-0.2); BASO % 1.2 % (0.0-1.0); EOS # 0.4 10^3/uL (0.0-0.5); EOS % 4.6 % (0.0-3.0); HEMOGLOBIN 15.5 g/dl (13.5-17.5); LYMPH # 2.2 10^3/uL (1.5-5.0); LYMPH % 28.4 % (24.0-44.0); MEAN CORPUSCULAR HEMOGLOBIN 31.3 pg (27.0-33.0); MEAN CORPUSCULAR HGB CONC 32.3 g/dl (32.0-36.5); MONO # 0.9 10^3/uL (0.0-0.8); MONO % 11.3 % (2.0-8.0); NEUTROPHILS # 4.2 10^3/uL (1.5-8.5); NEUTROPHILS % 53.6 % (36.0-66.0); PLATELET COUNT, AUTOMATED 304 10^3/uL (150-450); RED BLOOD COUNT 4.95 10^6/uL (4.30-6.10); WHITE BLOOD COUNT 7.8 10^3/uL (4.0-10.0)
[2023-10-01 14:23] LABS: ALBUMIN 3.8 G/DL (3.2-5.2); ALKALINE PHOSPHATASE 92 U/L (46-116); ALT/SGPT 53 U/L (7.0-40); AST/SGOT 32 U/L (<34); BILIRUBIN,TOTAL 0.3 MG/DL (0.3-1.2); BLOOD UREA NITROGEN 15 MG/DL (9-23); CALCIUM LEVEL 9.4 MG/DL (8.3-10.6); CARBON DIOXIDE LEVEL 31 MMOL/L (20-31); CHLORIDE LEVEL 105 MMOL/L (98-107); CHOLESTEROL LEVEL 170 MG/DL (<200); CHOLESTEROL RISK RATIO 3.89 (<5); FERRITIN 36.3 NG/ML (10.5-307.3); GLOMERULAR FILTRATION RATE > 60.0 (>42); GLUCOSE, FASTING 125 MG/DL (74-106); HDL CHOLESTEROL 43.7 MG/DL (>40); LDL CHOLESTEROL 90.3 MG/DL (<100); NON-HDL-C 126.3 MG/DL; POTASSIUM SERUM 4.2 MMOL/L (3.5-5.1); SODIUM LEVEL 143 MMOL/L (136-145); TOTAL PROTEIN 6.8 G/DL (5.7-8.2); TRIGLYCERIDES LEVEL 180 MG/DL (<150)
[2023-10-01 14:55] LABS: HEMOGLOBIN A1c 5.6 % (4.0-6.0)
== END ==
LOC: M PLALAB 09:33 → M LAB 09:33
PROVIDERS: ATTEND Physician Assistant
DX: Z00.00 Encounter for general adult medical examination without abnormal findings (principal); E78.2 Mixed hyperlipidemia; Z87.891 Personal history of nicotine dependence; D50.9 Iron deficiency anemia, unspecified; Z13.1 Encounter for screening for diabetes mellitus
CPT/HCPCS: 36415; 80053; 80061; 82728; 83036; 85025; G0103

== ENCOUNTER → 2023-10-03 | Outpatient (CLI) | payer MEDICARE | LOC: M RAD 08:20 | PROVIDERS: ATTEND Physician Assistant | DX: Z87.891 Personal history of nicotine dependence (principal) ==

== ENCOUNTER → 2023-11-22 | Day surgery (SDC) | payer MEDICARE ==
[~2023-11-22] VITALS: Ht 162.6 cm; Wt 67.8 kg
[~2023-11-22] MED LIST changes: +FAMO20TA PO; +LIDOCAINE 2% 100MG/5ML SDV (FOR ANES.) As Ordered ONE; +MONT10TA97 PO; +NS 1,000 ML IV ONE; +propofoL 200 MG/20 ML VIAL As Ordered ONE
[2023-11-22 13:42] VITALS: BP 111/67; TEMP 96.6; O2SAT 94
== END | disposition home or self-care (01) ==
LOC: M OPP 11:10
PROVIDERS: ATTEND Surgery
DX: Z85.038 Personal history of other malignant neoplasm of large intestine (principal); D12.3 Benign neoplasm of transverse colon; Z87.891 Personal history of nicotine dependence; Z79.02 Long term (current) use of antithrombotics/antiplatelets; Z79.51 Long term (current) use of inhaled steroids; Z79.899 Other long term (current) drug therapy

== ENCOUNTER → 2024-07-14 | Outpatient (CLI) | payer MEDICARE ==
[~2024-07-14] MED LIST changes: -LIDOCAINE 2% 100MG/5ML SDV (FOR ANES.) As Ordered ONE; -NS 1,000 ML IV ONE; -propofoL 200 MG/20 ML VIAL As Ordered ONE
== END ==
LOC: M RAD 16:31
PROVIDERS: ATTEND Internal Medicine Critical Care Medicine
DX: R91.8 Other nonspecific abnormal finding of lung field (principal)

== ENCOUNTER → 2024-09-17 | Outpatient (CLI) | payer MEDICARE ==
[2024-09-17 15:08] LABS: BASO # 0.1 10^3/uL (0.0-0.2); BASO % 0.8 % (0.0-1.0); EOS # 0.2 10^3/uL (0.0-0.5); HEMATOCRIT 46.2 % (42.0-52.0); HEMOGLOBIN 15.2 g/dl (13.5-17.5); LYMPH # 1.7 10^3/uL (1.5-5.0); LYMPH % 15.1 % (24.0-44.0); MEAN CORPUSCULAR HEMOGLOBIN 31.6 pg (27.0-33.0); MEAN CORPUSCULAR HGB CONC 32.9 g/dl (32.0-36.5); MONO # 1.8 10^3/uL (0.0-0.8); MONO % 15.8 % (2.0-8.0); NEUTROPHILS # 7.4 10^3/uL (1.5-8.5); NEUTROPHILS % 65.7 % (36.0-66.0); PLATELET COUNT, AUTOMATED 298 10^3/uL (150-450); RED BLOOD COUNT 4.81 10^6/uL (4.30-6.10); WHITE BLOOD COUNT 11.3 10^3/uL (4.0-10.0)
[2024-09-17 15:13] LABS: IRON (FE) 66 UG/DL (65-175); PERCENT SATURATION 22.4 % (19.7-50.0); TOTAL IRON BINDING CAPACITY 294 UG/DL (250-425)
[2024-09-17 15:14] LABS: ALBUMIN 3.6 G/DL (3.2-5.2); ALKALINE PHOSPHATASE 92 U/L (40-129); ALT/SGPT 21 U/L (7.0-40); AST/SGOT 17 U/L (<34); BILIRUBIN,TOTAL 0.4 MG/DL (0.3-1.2); BLOOD UREA NITROGEN 14 MG/DL (9-23); CALCIUM LEVEL 9.9 MG/DL (8.3-10.6); CARBON DIOXIDE LEVEL 31 MMOL/L (20-31); CHLORIDE LEVEL 108 MMOL/L (98-107); CHOLESTEROL LEVEL 130 MG/DL (<200); CHOLESTEROL RISK RATIO 3.36 (<5); CREATININE FOR GFR 0.66 MG/DL (0.70-1.30); GLOMERULAR FILTRATION RATE > 60.0 (>42); GLUCOSE, FASTING 90 MG/DL (74-106); HDL CHOLESTEROL 38.6 MG/DL (>40); LDL CHOLESTEROL 64.2 MG/DL (<100); NON-HDL-C 91.4 MG/DL; POTASSIUM SERUM 4.1 MMOL/L (3.5-5.1); SODIUM LEVEL 142 MMOL/L (136-145); TOTAL PROTEIN 6.8 G/DL (5.7-8.2); TRIGLYCERIDES LEVEL 136 MG/DL (<150)
[2024-09-17 15:18] LABS: FERRITIN 58.5 NG/ML (10.5-307.3); FREE T4 1.03 NG/DL (0.89-1.76)
[2024-09-17 15:19] LABS: THYROID STIMULATING HORMONE 0.576 uIU/ML (0.55-4.78); TOTAL 25(OH) VITAMIN D 48.3 NG/ML (20.0-100.0); VITAMIN B12 LEVEL 447 PG/ML (211-911)
[2024-09-17 15:21] LABS: HEMOGLOBIN A1c 5.5 % (4.0-6.0)
== END ==
LOC: M PLALAB 12:13
PROVIDERS: ATTEND Physician Assistant
DX: D50.9 Iron deficiency anemia, unspecified (principal); E78.2 Mixed hyperlipidemia; J44.9 Chronic obstructive pulmonary disease, unspecified; R10.13 Epigastric pain; Z79.899 Other long term (current) drug therapy

== ENCOUNTER → 2024-10-08 | Outpatient (REF) | payer MEDICARE ==
[2024-10-08 14:14] LABS: BASO # 0.1 10^3/uL (0.0-0.2); BASO % 0.8 % (0.0-1.0); EOS # 0.2 10^3/uL (0.0-0.5); EOS % 1.5 % (0.0-3.0); HEMATOCRIT 47.3 % (42.0-52.0); HEMOGLOBIN 15.4 g/dl (13.5-17.5); LYMPH # 1.6 10^3/uL (1.5-5.0); LYMPH % 15.8 % (24.0-44.0); MEAN CORPUSCULAR HGB CONC 32.6 g/dl (32.0-36.5); MEAN CORPUSCULAR VOLUME 98.1 fl (80.0-96.0); MONO # 1.1 10^3/uL (0.0-0.8); MONO % 11.3 % (2.0-8.0); NEUTROPHILS # 7.1 10^3/uL (1.5-8.5); NEUTROPHILS % 70.2 % (36.0-66.0); PLATELET COUNT, AUTOMATED 353 10^3/uL (150-450); RED BLOOD COUNT 4.82 10^6/uL (4.30-6.10)
== END ==
LOC: M SFHCPLAZ 10:25
PROVIDERS: ATTEND Internal Medicine Hematology
DX: D72.821 Monocytosis (symptomatic) (principal)

== ENCOUNTER → 2024-10-13 | Outpatient (CLI) | payer MEDICARE | LOC: M LAB 12:06 | PROVIDERS: ATTEND Internal Medicine Hematology | DX: D72.821 Monocytosis (symptomatic) (principal); D72.810 Lymphocytopenia ==

== ENCOUNTER → 2025-08-05 | Outpatient (CLI) | payer MEDICARE | LOC: M RAD 10:11 | PROVIDERS: ATTEND Internal Medicine Critical Care Medicine | DX: Z87.891 Personal history of nicotine dependence (principal) ==

== ENCOUNTER → 2025-09-29 | Outpatient (CLI) | payer MEDICARE ==
[2025-09-29 12:49] LABS: BASO # 0.1 10^3/uL (0.0-0.2); BASO % 0.8 % (0.0-1.0); EOS # 0.6 10^3/uL (0.0-0.5); EOS % 4.1 % (0.0-3.0); LYMPH # 1.7 10^3/uL (1.5-5.0); LYMPH % 11.2 % (24.0-44.0); MONO # 1.8 10^3/uL (0.0-0.8); MONO % 11.3 % (2.0-8.0); NEUTROPHILS # 11.0 10^3/uL (1.5-8.5); NEUTROPHILS % 71.2 % (36.0-66.0); PLATELET COUNT, AUTOMATED 366 10^3/uL (150-450)
[2025-09-29 13:11] LABS: IRON (FE) 107 UG/DL (65-175)
[2025-09-29 13:12] LABS: ALT/SGPT 20 U/L (7.0-40); AST/SGOT 20 U/L (<34); CALCIUM LEVEL 9.5 MG/DL (8.3-10.6); CARBON DIOXIDE LEVEL 29 MMOL/L (20-31); CHLORIDE LEVEL 106 MMOL/L (98-107); CHOLESTEROL LEVEL 128 MG/DL (<200); CHOLESTEROL RISK RATIO 2.80 (<5); CREATININE FOR GFR 0.63 MG/DL (0.70-1.30); GLOMERULAR FILTRATION RATE > 90.0 (>42); LDL CHOLESTEROL 59.3 MG/DL (<100); MAGNESIUM LEVEL 2.1 MG/DL (1.8-2.4); NON-HDL-C 82.3 MG/DL; POTASSIUM SERUM 4.2 MMOL/L (3.5-5.1); SODIUM LEVEL 143 MMOL/L (136-145); TRIGLYCERIDES LEVEL 115 MG/DL (<150)
[2025-09-29 13:47] LABS: ESTIMATED AVERAGE GLUCOSE 117.0 MG/DL (60-110)
== END ==
LOC: M LAB 10:53
PROVIDERS: ATTEND Student in an Organized Health Care Education/Training Program
DX: Z00.00 Encounter for general adult medical examination without abnormal findings (principal); G47.62 Sleep related leg cramps; D50.9 Iron deficiency anemia, unspecified; E78.5 Hyperlipidemia, unspecified